=== PATIENT | male | born 1955 | race Caucasian/White ===

== ENCOUNTER 2017-04-11 07:47 | Day surgery (SDC) | payer OTHER ==
[~2017-04-11] VITALS: Ht 185.4 cm; Wt 89.4 kg
[~2017-04-11 07:47] MED LIST: LISINOPRIL40 MG PO; MELOXICAM15 MG PO
--- NOTE | 2017-04-11 09:52 | NUR ---
04/11/17 0952 Sheyla Bills REPORT FROM JULIA BRUNO.
--- NOTE | 2017-04-11 10:35 | NUR ---
PT ALERT, ORIENTED AND SUPPORTED BY HIS CARY. FIRST EGD. HAD SOME QUESTIONS REGARDING THE EGD PROCEDURE ITSELF, REFERRED THOSE TO RN. EXTENDED A BLESSING. WILL FOLLOW NEEDED
--- NOTE | 2017-04-19 12:08 | OR ---
[facility] [address] [place], [place] [address] Signed DATE OF SERVICE: 04/11/2017 PREOPERATIVE DIAGNOSES: Gastroesophageal reflux disease. Personal history of colonic polyps since 2004. Father with a history of colon cancer and at age 77. Diverticulosis. POSTOPERATIVE DIAGNOSES: Mild to moderate diffuse gastritis. Small type 1 hiatal hernia. Moderate pandiverticulosis. A 7 mm polyp, proximal transverse colon. A 3 mm polyp at 65 cm. Moderate external hemorrhoids. PROCEDURES: EGD with CLOtest and biopsy of the antrum. Colonoscopy with hot biopsy. ESTIMATED BLOOD LOSS: None. INDICATIONS: Ron is a 62-year-old gentleman who came to us for upper and lower endoscopy. He has had chronic acid ref lux for years. He has never had a formal evaluation. In addition, his father was diagnosed with colon cancer and from the colon cancer by age 77. Ron himself has had colonic polyps removed clear back to 2004. He is also known to have bilateral diverticulosis. In the meantime, he says he is doing well. 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 In the office, I gave him a pamphlet on both upper and lower endoscopy. We discussed the nature of the 2 tests along with the risks including, but are not limited to gas, bloating, crampy abdominal pain, bleeding, perforation, requiring surgery, and missed diagnosis. We also discussed the need for IV conscious sedation. He expressed understanding and wished to proceed. DESCRIPTION OF PROCEDURE: Ron was taken into our endoscopy suite and placed in the supine semi-recumbent position. He was given divided doses of 7 mg of Versed and 150 mcg of fentanyl to cover both procedures. A bite block was utilized for the upper endoscopy. We did spray the posterior oropharynx with Hurricaine spray. The adult gastroscope had been introduced and he was a little bit awaken. For some reason, he had quite a bit of saliva. We spent a moderate amount of time suctioning out the saliva and it took us a while to get him Electronically Signed By: DEEP DEVINE MD 04/19/17 1208 PATIENT NAME: RON CANTU OPERATIVE REPORT DATE OF : 57 PHYSICIAN: DEEP DEVINE MD REPORT #: [id number] REPORT IS CONFIDENTIAL AND NOT TO BE RELEASED WITHOUT AUTHORIZATION [facility] [address] [place] [id number] Signed asleep enough to do the upper endoscopy. The scope was then passed out into the stomach and into the duodenum without difficulty. The duodenum was unremarkable. Pyloric channel showed very minimal, if any, erythema. Ho w ever, the stomach showed moderate erythema throughout. We took a biopsy from the antrum for CLOtest as well as pathologic review. Upon retroflexion of scope, he does have a small type 1 hiatal hernia. The scope was withdrawn up to the area of the GE junction, which appears to be compliant without stricture, although there was a bit of a ring there and it is always possible if has food get stuck, we will have to do a barium swallow to see if that indeed is strictured. He has some irritation around the Z-mima e from the acid reflux. We went ahead and withdrew the camera. We could see the middle and upper esophagus were unremarkable. After this, the gas had been suctioned out and the gastroscope removed. Overall, Ron tolerated the upper endoscopy well. The area was then rotated into the left lateral decubitus position. He was maintained on IV sedation with Versed and fentanyl. A digital rectal exam was performed and he does have moderate external hemorrhoids. His prostate is a bit indurated consistent with his age. The adult colonoscope was introduced and advanced all around into the cecum under direct visualization of the camera without difficulty. His prep was good. He does have pandiverticulosis. They were moderate in size, moderate in number and scattered about. In the transverse colon, we did take out a 7 mm sessile polyp. It took several hot biopsy forceps. Back in the left colon at 65 cm was a tiny polyp removed with hot biopsy forceps. The rectum itself was unremarkable. Upon retroflexion of scope, we did not see any additional pathology above the anal canal. After this, the gas was suctioned out and the colonoscope removed. Ron tolerated the procedure quite well. RECOMMENDATIONS: I will see Ron back in my office in 7-14 days to review his results. MD MARY Gilliland/Dominic /[id number] cc: Eagle Hollins MD Electronically Signed By: DEEP DEVINE MD 04/19/17 1208 PATIENT NAME: RON CANTU OPERATIVE REPORT DATE OF : 57 PHYSICIAN: DEEP DEVINE MD REPORT #: [id number] REPORT IS CONFIDENTIAL AND NOT TO BE RELEASED WITHOUT AUTHORIZATION
== END 2017-04-11 10:45 | disposition home or self-care (01) ==
LOC: OPS 07:47 → DS 07:47 → OPS 09:00
PROVIDERS: Colon & Rectal Surgery
PROC: 0DBL8ZX Excision of Transverse Colon, Via Natural or Artificial Opening Endoscopic, Diagnostic (ICD-10-PCS; 2017-04-11)
PROC: 0DBE8ZX Excision of Large Intestine, Via Natural or Artificial Opening Endoscopic, Diagnostic (ICD-10-PCS; principal; 2017-04-11 09:00)
PROC: 0DB68ZX Excision of Stomach, Via Natural or Artificial Opening Endoscopic, Diagnostic (ICD-10-PCS; 2017-04-11 09:00)
DX: K63.5 Polyp of colon (principal); K64.4 Residual hemorrhoidal skin tags; K44.9 Diaphragmatic hernia without obstruction or gangrene; K57.30 Diverticulosis of large intestine without perforation or abscess without bleeding; K29.50 Unspecified chronic gastritis without bleeding; K21.9 Gastro-esophageal reflux disease without esophagitis; E78.5 Hyperlipidemia, unspecified; Z86.010 Personal history of colon polyps; Z87.891 Personal history of nicotine dependence; Z80.0 Family history of malignant neoplasm of digestive organs
CPT/HCPCS: 86677; 99152; 99153; J2250; J3010; J7120

== ENCOUNTER 2021-01-03 07:32 | Day surgery (SDC) | payer OTHER ==
[~2021-01-03] VITALS: Ht 185.4 cm; Wt 95.9 kg
[~2021-01-03 07:32] MED LIST changes: +ADVIL200 M1 PO; +ALKA-SELTZER O1 EACH PO; +EPIDIOLEX100 MG/1 M PO; +PEPTO-BISMOL262 M1 PO; +PROBIOTIC1 EAC7 PO
--- NOTE | 2021-01-03 09:36 | NUR ---
01/03/21 0936 Italia Becerril 0984 PATIENT ARRIVES TO PACU AWAKE OFF/ON, SLEEPING WHEN NOT STIMULATED. RESP EVEN AND UNLABORED, ROOM AIR SATS >90%. PATIENT PASSING GAS.
--- NOTE | 2021-01-03 10:25 | OR ---
[facility] [address] [place], [place] [address] Signed DATE OF OPERATION: 01/03/2021 SURGEON: Deep Devine MD PREOPERATIVE DIAGNOSES: 1. Father of colon cancer at age 77. 2. Personal history of colonic polyps back to 2005. 3. Hyperplastic polyps in 2017. 4. External hemorrhoids. 5. Diverticulosis. 6. Left lower quadrant abdominal pain. POSTOPERATIVE DIAGNOSES: 1. Moderate pandiverticulosis. 2. Moderate internal and external hemorrhoids. 3. 5 mm polyp at 40 cm. 4. 4 mm polyp at 20 cm. 5. 3 mm polyps x3 at 18 cm (rectosigmoid junction). PROCEDURE: Colonoscopy with hot biopsy. ESTIMATED BLOOD LOSS: None. INDICATIONS: Ron is a 65-year-old gentleman, asked to see me for a followup colonoscopy. We know his father of colon cancer at age 77. Ron has had polyps back to 2004. He is known to have external hemorrhoids and diverticulosis as well. He has been staying on the 5-year rotation. However on this occasion, he developed left lower quadrant abdominal pain. It responded nicely to the Cipro and Flagyl. He came back then to see me a little early for followup colonoscopy. In the office, I gave Ron a pamphlet on colonoscopy. He understands the test quite well. He is aware there is risk including, but not limited to gas bloating, crampy abdominal pain, bleeding, perforation requiring surgery, and missed diagnosis. He also understands the need for IV conscious sedation. He had expressed understanding and wished to proceed. PROCEDURE NOTE: Ron was taken into our endoscopy suite and placed in the left lateral decubitus position. He was given a total of 6 mg of Versed and 175 mcg of fentanyl to cover the Electronically Signed By: DEEP DEVINE MD 01/03/21 1025 PATIENT NAME: RON CANTU OPERATIVE REPORT DATE OF : 57 REPORT #: [id number] PHYSICIAN: DEEP DEVINE MD PCP: SHARMIAL KEE PA-C REPORT IS CONFIDENTIAL AND NOT TO BE RELEASED WITHOUT AUTHORIZATION [facility] [address] [place], [place] [address] Signed case. A digital rectal exam was performed. He does have moderate external hemorrhoids. Good sphincter tone. The adult colonoscope was introduced and advanced all around into the cecum under direct visualization of camera. He needed some extra sedation abdominal compression in order to advance the scope. We had taken pictures throughout for photodocumentation. The above-mentioned polyps were easily removed with the help of hot biopsy forceps. He does have moderate pandiverticulosis. They were moderate in size, moderate in number, and scattered throughout the colon. Once in the rectum, the scope had been retroflexed, he does have moderate internal hemorrhoid columns as well. After this, the gas was suctioned out and colonoscope removed. Ron tolerated the procedure quite well. RECOMMENDATIONS: Ron will follow up in my office in 7 to 14 days to review his results. It looks like he will stay on the 5-year rotation. Deep Devine MD ALB/MODL /[id number] cc: SMITA Wilcox MD Copies: SHARMILA KEE PA-C, ANDREW L MD ~ Electronically Signed By: DEEP DEVINE MD 01/03/21 1025 PATIENT NAME: RON CANTU OPERATIVE REPORT DATE OF : 57 REPORT #: [id number] PHYSICIAN: DEEP DEVINE MD PCP: SHARMILA KEE PA-C REPORT IS CONFIDENTIAL AND NOT TO BE RELEASED WITHOUT AUTHORIZATION
--- NOTE | 2021-01-05 14:56 | PATH ---
[facility] [address] [place], [place] [address] Signed SPECIMEN(S): A DESCENDING POLYP AT 48 CM SPECIMEN(S): B SIGMOID POLYP AT 28 CM SPECIMEN(S): C SIGMOID POLYP AT 18 CM SPECIMEN SOURCE: A. DESCENDING POLYP AT 48 CM B. SIGMOID POLYP AT 28 CM C. SIGMOID POLYP AT 18 CM CLINICAL HISTORY: History of polyps; family history of colon cancer MICROSCOPIC DESCRIPTION: Histologic sections of all submitted blocks are examined by light microscopy. These findings, together with the gross examination, support the pathologic diagnosis. FINAL PATHOLOGIC DIAGNOSIS: A. Colon, descending polyp at 48 cm, polypectomy: - Tubular adenoma. - Negative for high-grade dysplasia or malignancy. B. Colon, sigmoid polyp at 28 cm, polypectomy: - Tubular adenoma. - Negative for high-grade dysplasia or malignancy. C. Colon, sigmoid polyp at 18 cm, polypectomy: - Fragments of tubular adenoma. - Negative for high-grade dysplasia or malignancy. NAL:cml:C2NR GROSS DESCRIPTION: Three specimens are received in three containers, labeled "GF." A. The specimen, labeled "GF, one," and designated on the requisition "descending/left polypectomy 48 cm," is received in formalin and consists of one quezada soft tissue fragment that measures 0.3 cm in greatest dimension. The specimen is entirely submitted in cassette (A1). B. The specimen, labeled "GF, two," and designated on the requisition "sigmoid polypectomy 28 cm," is received in formalin and consists of three quezada soft tissue fragments that measure 0.2 to 0.5 cm in greatest dimension. The specimen is entirely submitted in cassette (B1). C. The specimen, labeled "GF, three," and designated on the requisition "sigmoid polypectomy 18 cm," is received in formalin and consists of three quezada soft tissue fragments that measure 0.3 up to 0.4 PATIENT NAME: SYDNEY CANTU PATHOLOGY DATE OF : 57 REPORT #: [id number] PHYSICIAN: [facility] PATHOLOG[facility] PCP: SHARMILA KEE PA-C REPORT IS CONFIDENTIAL AND NOT TO BE RELEASED WITHOUT AUTHORIZATION [facility] [address] [place], [place] [address] Signed cm in greatest dimension. The specimen is entirely submitted in cassette (C1). AI (under the direct supervision of a pathologist) The Gross Description was prepared using a voice recognition system. The report was reviewed for accuracy; however, sound-alike word errors, addition and/or deletions may occur. If there is any question about this report, please contact Client Services. PERFORMING LABORATORY: The technical component was performed by [facility], [address] [place] [id number] (Overlock Collar Setter: Annelise Jones MD; CLIA# [id number]). [facility], [address] [address] (CLIA# [id number]). Diagnostician: Jaymie Finley MD Pathologist Electronically Signed 01/05/2021 Copies: ~ PATIENT NAME: SYDNEY CANTU PATHOLOGY DATE OF : 57 REPORT #: [id number] PHYSICIAN: [facility] PCP: SHARMILA KEE PA-C REPORT IS CONFIDENTIAL AND NOT TO BE RELEASED WITHOUT AUTHORIZATION
== END 2021-01-03 09:55 | disposition home or self-care (01) ==
LOC: OPS 07:32 → DS 09:00 → OPS 09:55
PROVIDERS: ATTEND Colon & Rectal Surgery
PROC: 0DBE8ZX Excision of Large Intestine, Via Natural or Artificial Opening Endoscopic, Diagnostic (ICD-10-PCS; 2021-01-03)
PROC: 0DBN8ZX Excision of Sigmoid Colon, Via Natural or Artificial Opening Endoscopic, Diagnostic (ICD-10-PCS; principal; 2021-01-03 09:00)
DX: D12.4 Benign neoplasm of descending colon (principal); D12.5 Benign neoplasm of sigmoid colon; K57.30 Diverticulosis of large intestine without perforation or abscess without bleeding; K64.8 Other hemorrhoids; K64.4 Residual hemorrhoidal skin tags; I10 Essential (primary) hypertension; K21.9 Gastro-esophageal reflux disease without esophagitis; E78.5 Hyperlipidemia, unspecified; M19.049 Primary osteoarthritis, unspecified hand; Z85.828 Personal history of other malignant neoplasm of skin; Z86.010 Personal history of colon polyps; Z87.891 Personal history of nicotine dependence; Z80.0 Family history of malignant neoplasm of digestive organs; Z80.52 Family history of malignant neoplasm of bladder; Z83.71 Family history of colonic polyps; Z91.048 Other nonmedicinal substance allergy status
CPT/HCPCS: 99153; G0500; J2250; J3010; J7121

== ENCOUNTER 2025-02-10 17:46 | Emergency (ER) | payer MEDICARE, BC ==
[~2025-02-10] VITALS: Ht 185.4 cm; Wt 93.7 kg
[2025-02-10] MEDS ORDERED: TETRACAINE HCL 0.5% 4 ML BTL OS ONE (19:30)
[2025-02-10] MEDS ORDERED: MAXITROL EYE DRO5 ML OPTH (19:52)
[2025-02-10] MEDS ORDERED: NEOMYCIN/POLYMYXIN/DEXAMETH OPTH SUSPENSION BOTTLE OS ONE (20:00)
[2025-02-10 20:08] VITALS: BP 130/77
== END 2025-02-10 20:08 | disposition home or self-care (01) ==
LOC: ED 17:46
DX: S05.02XA Injury of conjunctiva and corneal abrasion without foreign body, left eye, initial encounter (principal); X58.XXXA Exposure to other specified factors, initial encounter; Z79.899 Other long term (current) drug therapy; Z88.8 Allergy status to other drugs, medicaments and biological substances; Z87.891 Personal history of nicotine dependence
CPT/HCPCS: 99283